=== PATIENT | female | born 1945 | race Caucasian/White ===

== ENCOUNTER 2017-09-08 09:22 | Day surgery (SDC) | payer MEDICARE ==
[~2017-09-08] VITALS: Ht 160 cm; Wt 103.9 kg
[2017-09-08] VITALS (12 sets, daily range): BP systolic 157–199; BP diastolic 67–102; PULSE 47–68; TEMP 97.8
[2017-09-08] MEDS ORDERED: COREG 25MG25 MG/TAB PO (09:55)
[2017-09-08 10:00] LABS: HEMATOCRIT 41.5 % (37.0-47.0); HEMOGLOBIN 13.5 g/dl (12.5-16.0); MEAN CELL VOLUME 87 fl (80.0-100.0); MEAN CORPUSCULAR HEMOGLOBIN 28 pg (27.0-31.0); MEAN CORPUSCULAR HGB CONC 33 g/dl (33.0-37.0); MEAN PLATELET VOLUME 11.4 fl (7.4-10.4); PLATELET COUNT 228 K/mm3 (130-400); RED BLOOD COUNT 4.78 M/mm3 (4.10-5.30); REDCELL DISTRIBUTION WIDTH-CV 14.4 % (11.5-14.5)
[2017-09-08 10:05] LABS: PROTHROMBIN TIME 11.5 SECONDS (9.7-12.8)
[2017-09-08 10:10] LABS: CALCIUM 9.5 mg/dL (8.4-10.2); CREATININE, serum 0.73 mg/dL (0.52-1.25); POTASSIUM 4.6 mmol/L (3.4-5.0)
== END 2017-09-08 16:30 | disposition home or self-care (01) ==
LOC: COL.CAR 09:22
PROVIDERS: Internal Medicine Cardiovascular Disease
DX: R94.39 Abnormal result of other cardiovascular function study (principal); I10 Essential (primary) hypertension; I45.4 Nonspecific intraventricular block; Z87.891 Personal history of nicotine dependence; Z82.49 Family history of ischemic heart disease and other diseases of the circulatory system; R51 Headache
CPT/HCPCS: C1769; J1644; J2250; J3010; Q9967